=== PATIENT | male | born 1930 | race Caucasian/White ===

== ENCOUNTER 2018-12-31 10:00 | Emergency (ER) | payer MEDICARE ==
[~2018-12-31] VITALS: Ht 180.3 cm; Wt 92.3 kg
[~2018-12-31 10:00] MED LIST: ASPIRIN ADULT L81 MG PO; CO Q-10100 MG PO; DOXYCYCL HYC100 MG PO; FLONASE NASAL50 MCG; FOLIC ACID20 MG PO; FOLIC ACID400 MC1 PO; LEVOTHYROXIN175 MC1 PO; OMEGA 3550 MG PO; SIMVASTATIN80 MG PO; VITAMIN D31000 UNI1 PO; ZINC50 M1 PO
[2018-12-31 10:57] LABS: HEMATOCRIT 42.7 % (39.0-50.0); HEMOGLOBIN 14.8 g/dl (14.0-18.0); MEAN CELL VOLUME 98.6 fL CALC (80.0-100.0); MEAN CORPUSCULAR HGB 34.2 pG CALC (26.0-32.0); MEAN CORPUSCULAR HGB CONC 34.7 g/L CALC (32.0-36.0); PLATELET COUNT 245 thou/uL (130-400); RED BLOOD COUNT 4.33 mill/uL (4.70-6.10); RED CELL DISTRI WIDTH 12.6 % (11.5-15.5)
[2018-12-31 11:04] LABS: ALBUMIN 3.9 g/dL (3.2-5.0); ALKALINE PHOSPHATASE 114 u/l (38-126); BUN 43 mg/dL (8-23); BUN/CREATININE RATIO 33 (12-20 (CALC)); CARBON DIOXIDE 27 mmol/l (22-30); CHLORIDE 97 mmol/l (95-108); CREATININE 1.3 mg/dL (0.7-1.3); GFR 52 ML/MIN (>=60 (CALC)); GFR FOR AFR.AMER. > 60 ML/MIN (>=60 (CALC)); SODIUM 137 mmol/l (137-146); TOTAL PROTEIN 6.9 g/dL (6.3-8.2)
[2018-12-31 11:05] LABS: IMMATURE GRANULOCYTES 6.4 % (0.0-5.0)
[2018-12-31 11:06] LABS: MANUAL DIFFERENTIAL YES
[2018-12-31 11:12] LABS: URINE BLOOD DIPSTICK LARGE (NEGATIVE); URINE GLUCOSE - DIPSTICK NEGATIVE (NEGATIVE); URINE KETONE NEGATIVE (NEGATIVE); URINE LEUK ESTERASE NEGATIVE (NEGATIVE); URINE NITRITE - DIPSTICK NEGATIVE (Negative); URINE PH 5.5 (4.5-8.0); URINE PROTEIN - DIPSTICK 100 mg/dL (NEG-TRACE); URINE SPECIFIC GRAVITY 1.025; URINE UROBILINOGEN - DIPSTICK 0.2 E.U./dL (0.2)
[2018-12-31 11:16] LABS: ANION GAP 18 (6-22 (CALC)); BAND 7 % (0-8)
[2018-12-31 11:17] LABS: BILIRUBIN, TOTAL 1.1 mg/dL (0.0-1.4); POTASSIUM 4.7 mmol/l (3.5-5.1); SGOT/AST 839 u/l (19-48)
[2018-12-31 11:17] LABS: URINE BILIRUBIN - DIPSTICK SMALL (NEGATIVE); URINE COLOR DK. YELLOW
[2018-12-31 11:18] LABS: URINE EPITHELIAL CELLS FEW EPI/hpf (0-FEW); URINE MUCUS FEW hpf (NONE-FEW)
[2018-12-31] MEDS ORDERED: CRESTOR40 MG PO (11:36)
[2018-12-31] MEDS ORDERED: DIOVAN HCT160 MG/25 PO (11:37)
[2018-12-31] MEDS ORDERED: CLOPIDOGREL75 MG PO (11:39)
[2018-12-31 11:40] LABS: INTERNATIONAL NORMALIZED RATIO 1.2 RATIO (0.7-1.3); PROTHROMBIN TIME 12.4 SECONDS (9.0-12.5)
[2018-12-31] MEDS ORDERED: SPIRIVA RE1.25 MCG/A IN (11:40)
[2018-12-31] MEDS ORDERED: VITAMIN C500 M6 PO (11:41)
[2018-12-31] MEDS ORDERED: MULTI VIT PO (11:43)
[2018-12-31] MEDS ORDERED: FISH OIL1000 MG PO (11:43)
[2018-12-31] MEDS ORDERED: [UNRECOGNIZED DRUG - OTHER] PO (11:46)
[2018-12-31] MEDS ORDERED: VITAMIN D3400 UNIT PO (11:47)
[2018-12-31] MEDS ORDERED: VITAMIN B 6100 MG PO (11:48)
[2018-12-31] MEDS ORDERED: MAGNESIUM400 MG PO (11:48)
[2018-12-31 17:31] VITALS: BP 115/57
== END 2018-12-31 17:31 | disposition short-term general hospital (02) ==
LOC: ED 10:00
PROVIDERS: Emergency Medicine
PROC: 0T9B70Z Drainage of Bladder with Drainage Device, Via Natural or Artificial Opening (ICD-10-PCS; principal; 2018-12-31)
DX: R41.82 Altered mental status, unspecified (principal); R79.89 Other specified abnormal findings of blood chemistry; M62.82 Rhabdomyolysis; C91.10 Chronic lymphocytic leukemia of B-cell type not having achieved remission; I10 Essential (primary) hypertension; R29.6 Repeated falls; Z85.820 Personal history of malignant melanoma of skin; M25.462 Effusion, left knee; M25.562 Pain in left knee